=== PATIENT | female | born 1995 | race Caucasian/White ===

== ENCOUNTER → 2016-09-26 | Outpatient (CLI) | payer OTHER ==
[~2016-09-26] MED LIST: CALCITRIOL PO; PHOS LO PO; SODIUM BICARBO650 MG PO; SPRINTEC 35 MCG1 TAB PO; VELTASSA8.4 GM PO
[2016-09-26 13:07] LABS: CALCIUM 9.9 mg/dL (8.4-10.2); PHOSPHOROUS 4.9 mg/dL (2.5-4.5); POTASSIUM 5.5 mmol/L (3.4-5.0)
[2016-09-26 13:16] LABS: CREATININE, serum 12.49 mg/dL (0.52-1.25)
[2016-09-26 13:16] LABS: HEMATOCRIT 29.9 % (37.0-47.0)
== END ==
LOC: COL.LAB 12:27
PROVIDERS: Internal Medicine Nephrology
DX: N18.9 Chronic kidney disease, unspecified (principal); D63.1 Anemia in chronic kidney disease; E83.39 Other disorders of phosphorus metabolism

== ENCOUNTER 2016-11-28 17:00 | Outpatient (RCR) | payer OTHER ==
[2016-09-05 16:25] VITALS: BP 133/88; PULSE 90; TEMP 98.6
[2016-09-26 13:45] VITALS: BP 148/93; PULSE 97; TEMP 99
[2016-10-20 14:35] VITALS: BP 135/87; PULSE 88; TEMP 98.4
[2016-10-20 14:44] LABS: HEMATOCRIT 26.9 % (37.0-47.0); HEMOGLOBIN 9.2 g/dl (12.5-16.0)
[2016-10-20 14:48] LABS: ALBUMIN 4.2 gm/dL (3.5-5.0); PHOSPHOROUS 3.6 mg/dL (2.5-4.5); POTASSIUM 4.3 mmol/L (3.4-5.0)
[2016-10-20 15:14] LABS: CREATININE, serum 12.97 mg/dL (0.52-1.25)
[2016-10-21 15:36] VITALS: BP 132/77; PULSE 82; TEMP 98.7
[2016-11-14 18:30] VITALS: BP 135/82; PULSE 89; TEMP 98.5
[2016-11-14 18:44] LABS: HEMATOCRIT 25.3 % (37.0-47.0); HEMOGLOBIN 8.6 g/dl (12.5-16.0)
[2016-11-15 18:50] LABS: ALBUMIN 4.2 gm/dL (3.5-5.0); CALCIUM 9.8 mg/dL (8.4-10.2); PHOSPHOROUS 4.4 mg/dL (2.5-4.5); POTASSIUM 4.3 mmol/L (3.4-5.0)
[2016-11-15 18:59] LABS: CREATININE, serum 12.88 mg/dL (0.52-1.25)
[2016-11-15 19:20] LABS: THYROID STIMULATING HORMONE 1.46 uIU/mL (0.465-4.680)
[~2016-11-28] VITALS: Ht 165.1 cm; Wt 61.3 kg
[2016-11-28 16:56] VITALS: BP 135/93; PULSE 75; TEMP 98.6
== END 2016-12-04 | disposition home or self-care (01) ==
LOC: EUO
PROVIDERS: Internal Medicine Nephrology
DX: Z79.899 Other long term (current) drug therapy (principal)
CPT/HCPCS: J0882

== ENCOUNTER → 2016-12-12 | Outpatient (CLI) | payer OTHER ==
[2016-12-12 14:10] LABS: HEMATOCRIT 29.1 % (37.0-47.0); HEMOGLOBIN 9.5 g/dl (12.5-16.0)
[2016-12-12 14:56] LABS: ALBUMIN 4.2 gm/dL (3.5-5.0); CALCIUM 10.5 mg/dL (8.4-10.2); POTASSIUM 5.5 mmol/L (3.4-5.0)
[2016-12-12 14:59] LABS: CREATININE, serum 14.54 mg/dL (0.52-1.25)
[2016-12-12 15:05] LABS: PHOSPHOROUS 4.8 mg/dL (2.5-4.5)
== END ==
LOC: COL.LAB 13:32
PROVIDERS: Internal Medicine Nephrology
DX: N18.5 Chronic kidney disease, stage 5 (principal); D63.1 Anemia in chronic kidney disease

== ENCOUNTER → 2016-12-16 | Outpatient (CLI) | payer OTHER ==
[2016-12-16 10:48] LABS: CALCIUM 10.7 mg/dL (8.4-10.2)
[2016-12-16 11:17] LABS: CREATININE, serum 14.34 mg/dL (0.52-1.25)
== END ==
LOC: COL.LAB 09:42
PROVIDERS: Internal Medicine Nephrology
DX: E87.5 Hyperkalemia (principal)

== ENCOUNTER → 2017-08-14 | Outpatient (CLI) | payer OTHER ==
[2017-08-14 09:06] LABS: COLLECTION METHOD CLEAN CATCH
[2017-08-14 09:11] LABS: BASO % 0.5 % (0.0-2.0); EOS # 0.1 (0.0-0.7); EOS % 2.5 % (0-4.0); GRAN # 2.5 (1.4-6.5); GRAN % 57.4 % (42.2-75.2); HEMATOCRIT 40.6 % (37.0-47.0); HEMOGLOBIN 12.9 g/dl (12.5-16.0); LYMPH # 1.3 (1.2-3.4); LYMPH % 29.6 % (20.0-51.0); MEAN CELL VOLUME 82 fl (80.0-100.0); MEAN CORPUSCULAR HEMOGLOBIN 26 pg (27.0-31.0); MEAN CORPUSCULAR HGB CONC 32 g/dl (33.0-37.0); MEAN PLATELET VOLUME 10.7 fl (7.4-10.4); MONO # 0.4 (0.1-0.6); MONO % 9.8 % (1.7-9.3); PLATELET COUNT 210 K/mm3 (130-400); RED BLOOD COUNT 4.94 M/mm3 (4.10-5.30); WHITE BLOOD COUNT 4.4 K/mm3 (4.8-10.8)
[2017-08-14 09:14] LABS: MUCOUS Present /lpf; PH 5 (5-8); SQUAMOUS EPITHELIAL 0-2 /hpf; URINE APPEARANCE Clear; URINE BACTERIA Rare /hpf; URINE BILIRUBIN Negative (NEGATIVE); URINE BLOOD Negative (NEGATIVE); URINE COLOR Straw; URINE GLUCOSE Negative (NEGATIVE); URINE KETONE Negative (NEGATIVE); URINE LEUKOCYTE ESTERASE Negative (NEGATIVE); URINE PROTEIN(semi-quant) Negative (NEGATIVE); URINE RBC 0-2 /hpf; URINE UROBILINOGEN Negative (NEGATIVE); URINE WBC 0-2 /hpf
[2017-08-14 09:22] LABS: ADJUSTED CALCIUM 9.7 mg/dL (8.4-10.2); ALBUMIN 4.5 gm/dL (3.5-5.0); BILIRUBIN,TOTAL 0.6 mg/dL (0.0-1.0); CALCIUM 10.1 mg/dL (8.4-10.2); CREATININE, serum 1.12 mg/dL (0.52-1.25); MAGNESIUM 1.6 mg/dL (1.6-2.3); PHOSPHOROUS 2.6 mg/dL (2.5-4.5); POTASSIUM 4.8 mmol/L (3.4-5.0); TOTAL PROTEIN 7.6 gm/dL (6.4-8.2); URIC ACID 5.7 mg/dL (2.5-6.2)
[2017-08-14 09:54] LABS: URINE PROTEIN:CREAT RATIO 0.21 (0.00-0.14)
== END ==
LOC: COL.LAB 08:11
PROVIDERS: Internal Medicine Nephrology
DX: Z94.0 Kidney transplant status (principal); Z79.899 Other long term (current) drug therapy

== ENCOUNTER → 2018-05-23 | Outpatient (CLI) | payer OTHER, MEDICARE ==
[2018-05-23 20:55] LABS: COLLECTION METHOD CLEAN CATCH
[2018-05-23 21:01] LABS: PH 6 (5-8); SQUAMOUS EPITHELIAL 0-2 /hpf; URINE APPEARANCE Clear; URINE BACTERIA Rare /hpf; URINE BILIRUBIN Negative (NEGATIVE); URINE BLOOD 2+ (NEGATIVE); URINE COLOR Yellow; URINE GLUCOSE Negative (NEGATIVE); URINE KETONE Negative (NEGATIVE); URINE LEUKOCYTE ESTERASE 3+ (NEGATIVE); URINE NITRATE Negative (NEGATIVE); URINE PROTEIN(semi-quant) 2+ (NEGATIVE); URINE UROBILINOGEN Negative (NEGATIVE)
== END ==
LOC: COL.LAB 20:45
PROVIDERS: Internal Medicine Nephrology
DX: Z79.899 Other long term (current) drug therapy (principal); Z94.0 Kidney transplant status

== ENCOUNTER → 2019-05-14 | Outpatient (CLI) | payer OTHER, MEDICARE ==
[2019-05-14 08:24] LABS: COLLECTION METHOD CLEAN CATCH
[2019-05-14 08:27] LABS: HEMATOCRIT 41.1 % (37.0-47.0); HEMOGLOBIN 13.7 g/dl (12.5-16.0); MEAN CELL VOLUME 86 fl (80.0-100.0); MEAN CORPUSCULAR HEMOGLOBIN 29 pg (27.0-31.0); MEAN CORPUSCULAR HGB CONC 33 g/dl (33.0-37.0); MEAN PLATELET VOLUME 10.4 fl (7.4-10.4); PLATELET COUNT 209 K/mm3 (130-400); RED BLOOD COUNT 4.78 M/mm3 (4.10-5.30); REDCELL DISTRIBUTION WIDTH-CV 12.3 % (11.5-14.5)
[2019-05-14 08:32] LABS: MUCOUS Present /lpf; PH 5 (5-8); SQUAMOUS EPITHELIAL 0-2 /hpf; URINE APPEARANCE Hazy; URINE BACTERIA Occasional /hpf; URINE BILIRUBIN Negative (NEGATIVE); URINE BLOOD Negative (NEGATIVE); URINE COLOR Yellow; URINE GLUCOSE Negative (NEGATIVE); URINE KETONE Negative (NEGATIVE); URINE LEUKOCYTE ESTERASE 1+ (NEGATIVE); URINE NITRATE Positive (NEGATIVE); URINE PROTEIN(semi-quant) Negative (NEGATIVE); URINE UROBILINOGEN Negative (NEGATIVE); URINE WBC >50 /hpf
[2019-05-14 08:40] LABS: CALCIUM 9.9 mg/dL (8.4-10.2); CREATININE, serum 1.12 (0.52-1.25); POTASSIUM 4.5 mmol/L (3.4-5.0)
== END ==
LOC: ZCOL.LAB 07:53
PROVIDERS: Urology
DX: R30.0 Dysuria (principal); R10.9 Unspecified abdominal pain